=== PATIENT | female | born 1995 | race African-American/Black ===

== ENCOUNTER 2017-01-19 04:50 | Emergency (ER) | payer OTHER ==
[~2017-01-19] VITALS: Ht 175.3 cm; Wt 59.0 kg
[~2017-01-19 04:50] MED LIST: AMOX875T PO
[2017-01-19 04:53] VITALS: BP 114/68; PULSE 93; RESP 16; TEMP 97.6; O2SAT 100
[2017-01-19] MEDS ORDERED: SODIUM CHLOR 0.9% 1000 ML INJ 1,000 ML IV ONE (05:15)
[2017-01-19 05:22] VITALS: RESP 20
[2017-01-19 05:32] LABS: AUTOMATED NEUTROPHIL # 3.7 TH/MM3 (1.8-7.7); BASOPHIL % 0.6 % (0.0-2.0); EOSINOPHIL # 0.1 TH/MM3 (0-0.4); EOSINOPHIL % 1.7 % (0.0-4.0); HEMATOCRIT 34.2 % (35.0-46.0); HEMO FLAGS DIFF FINAL; LYMPH % 33.1 % (9.0-44.0); LYMPHOCYTE # 2.3 TH/MM3 (1.0-4.8); MEAN CELL VOLUME 84.9 FL (80.0-100.0); MEAN CORPUSCULAR HEMOGLOBIN 28.7 PG (27.0-34.0); MEAN CORPUSCULAR HGB CONC 33.8 % (32.0-36.0); MONO % 10.4 % (0.0-8.0); NEUT % 54.2 % (16.0-70.0); PLATELET COUNT 297 TH/MM3 (150-450); RED BLOOD COUNT 4.03 MIL/MM3 (4.00-5.30); RED CELL DISTRIBUTION WIDTH 13.9 % (11.6-17.2); WHITE BLOOD COUNT 6.8 TH/MM3 (4.0-11.0)
[2017-01-19 05:41] LABS: BACTERIA, URINE RARE /hpf; BLOOD, URINE NEG (NEG); COMMENT (UR) CULTURE INDICATED; CULTURE IF INDICATED CULTURE INDICATED; GLUCOSE,URINE NEG (NEG); KETONE, URINE TRACE mg/dL (NEG); MUCUS URINE MANY /lpf (OCC); NITRITE,URINE NEG (NEG); PH, URINE 5.5 (5.0-8.5); SQUAMOUS EPITHELIAL CELL URINE 75 /hpf (0-5); URINE COLOR YELLOW (YELLW/STRAW)
[2017-01-19 05:52] LABS: ALT (GPT) 18 U/L (9-42); ANION GAP 10 MEQ/L (5-15); AST (GOT) 12 U/L (16-38); BICARBONATE 25.1 MEQ/L (21.0-32.0); BLOOD UREA NITROGEN 7 MG/DL (7-18); CHLORIDE 103 MEQ/L (98-107); GLOMERULAR FILTRATION RATE 120 ML/MIN (>89); POTASSIUM 3.4 MEQ/L (3.5-5.1); SODIUM (NA) 138 MEQ/L (136-145)
[2017-01-19 05:55] LABS: ALKALINE PHOSPHATASE 46 U/L (45-117); TOTAL BILIRUBIN ADULT 0.2 MG/DL (0.2-1.0)
[2017-01-19 06:13] LABS: BETA HCG QUANT 24952 MIU/ML (0-5)
--- NOTE | 2017-01-19 06:42 | PD ---
HPI Chief Complaint: Abdominal Pain Time Seen by Provider: 05:08 Travel History International Travel<30 days: No Contact w/Intl Traveler<30days: No Traveled to known affect area: No History of Present Illness HPI The patient is a 21 year old female who presents to the [facility] emergency department with a history of abdominal pain that she reports began a week ago. The patient reports that the abdominal pain has been coming and going. She reports that the pain as an aching sensation. She reports that it is a mild plain pain similar to the pain she gets just prior to her menstrual cycle. She denies having any vomiting or diarrhea associated with this. She reports that her last bowel movement was 2 days ago. She reports that her bowel movements have been normal for her. She reports that over the last week she has also had vaginal discharge. She reports that the vaginal discharge is white in color. She reports that there is no odor to the discharge. The patient is a . She reports that her last menstrual cycle was December 30, 2016. She reports that her last menstrual cycle was late her than usual. She reports that she has been sexually active and has not used any form of prevention. A review of systems, the patient reports that she has had , recent cough and cold symptoms. The patient reports that she's had urinary frequency without urgency or dysuria. The patient reports that her abdominal pain is across the lower portion of the abdomen below the umbilicus. She reports that she also has bilateral lower back pain. The patient denies any recent fevers, neck pain, chest pain, shortness of breath, or neurologic symptoms. [facility] Past Medical History Narrative Medical The patient's past medical history is reportedly significant for childhood asthma Asthma: Yes Immunizations Current: Yes Tetanus Vaccination: Unknown Influenza Vaccination: No ?: Not LMP: 12/30/16 Past Surgical History Narrative Surgical The patient's past surgical history is reportedly none. Surgical History: No Previous Surgery Social History Alcohol Use: No Tobacco Use: No Substance Use: No Allergies-Medications (Allergen,Severity, Reaction): Coded Allergies: Bee Sting (Verified Allergy, Severe, 01/19/17) Seafood (Verified Allergy, Severe, 01/19/17) *MDRO Multi-Drug Resistant Organism (Verified Adverse Reaction, Unknown, ) ESBL E.coli (urine) - 04/17/2016 Reported Meds & Prescriptions Reported Meds & Active Scripts Active Macrobid (Nitrofurantoin Monoh/Nitrofur Macro) 100 Mg Cap 100 Mg PO BID 10 Days Review of Systems Except as stated in HPI: all other systems reviewed are Neg General / Constitutional: No: Fever Eyes: No: Visual changes HENT: No: Headaches Cardiovascular: No: Chest Pain or Discomfort Respiratory: No: Shortness of Breath Gastrointestinal: Positive: Abdominal Pain, No: Nausea, Vomiting, Diarrhea Genitourinary: Positive: Frequency, No: Dysuria, Flank Pain Musculoskeletal: No: Pain Skin: No Rash Neurologic: No: Weakness Psychiatric: No: Depression Endocrine: No: Polydipsia Hematologic/Lymphatic: No: Easy Bruising Physical Exam Narrative General: The patient is a well-developed well-nourished female in no acute distress. Head and Neck exam: Head is normocephalic atraumatic. Eyes: EOMI, pupils are equal round and reactive to light. Nose: Midline septum with pink mucous membranes Mouth: Dentition unremarkable. Moist mucus membranes. Posterior oropharynx is not erythematous. No tonsillar hypertrophy. Uvula midline. Airway patent. Neck: No palpable lymphadenopathy. No nuchal rigidity. No thyromegaly. Cardiovascular: Regular rate and rhythm without murmurs, gallops, or rubs. Lungs: Clear to auscultation bilaterally. No wheezes, rhonchi, or rales. Abdomen: Soft, reported discomfort on palpation of the suprapubic area, no other tenderness on palpation of the other quadrants of the abdomen. No guarding, rebound, or rigidity. Negative [place] sign. Normal bowel sounds are audible. No tenderness on palpation of McBurney's point. Extremities: No clubbing, cyanosis, or edema. 2+ pulses in all 4 extremities. No calf tenderness on palpation. Back: No spinous process tenderness to palpation. No costovertebral angle tenderness to palpation. Neurologic Exam: Grossly nonfocal Skin Exam: No rash noted. Intact skin that is warm and dry. Gynecologic exam: The patient was placed in the dorsal lithotomy position. Her external genitalia were examined. She had no evidence of rash or lesions. The speculum was placed into her vagina and the cervix was identified. She has copious amounts of white thin discharge noted on examination. No cervical friability. This is wet prep and culture. On Bimanual exam: On bimanual examination the patient has bladder tenderness to palpation. She has no cervical motion tenderness. No adnexal tenderness or prominence noted on palpation. No uterine tenderness or enlargement noted on palpation. Data Data Last Documented VS Vital Signs Date Time Temp Pulse Resp B/P Pulse Ox O2 Delivery O2 Flow Rate FiO2 01/19/17 06:49 98.0 90 16 112/60 100 Room Air Orders Complete Blood Count With Diff (01/19/17 05:08) Comprehensive Metabolic Panel (01/19/17 05:08) C-Reactive Protein (Crp) (01/19/17 05:08) Lipase (01/19/17 05:08) Urinalysis - C+S If Indicated (01/19/17 05:08) Iv Access Insert/Monitor (01/19/17 05:08) Ecg Monitoring (01/19/17 05:08) Oximetry (01/19/17 05:08) Ed Urine Pregnancytest Poc (01/19/17 05:08) Sodium Chlor 0.9% 1000 Ml Inj (Ns 1000 M (01/19/17 05:15) Beta Hcg (Quant/Titer) (01/19/17 05:27) Urine Culture (01/19/17 05:15) Gc And Chlamydia Pcr (01/19/17 05:52) Complete Rh (01/19/17 05:52) Wet Prep Profile (01/19/17 05:52) Us Pelvis (Ques Pr/Ect)W Trans (01/19/17 ) Ceftriaxone Inj (Rocephin Inj) (01/19/17 07:00) Azithromycin Powd Pack (Zithromax Powd P (01/19/17 07:00) Labs Laboratory Tests Test 01/19/17 01/19/17 01/19/17 05:15 05:25 06:45 Urine Color YELLOW Urine Turbidity CLOUDY Urine pH 5.5 Urine Specific [place] 1.037 Urine Protein 100 mg/dL Urine Glucose (UA) NEG mg/dL Urine Ketones TRACE mg/dL Urine Occult Blood NEG Urine Nitrite NEG Urine Bilirubin NEG Urine Urobilinogen 2.0 MG/DL Urine Leukocyte Esterase LARGE Urine RBC 7 /hpf Urine WBC 50 /hpf Urine Squamous Epithelial 75 /hpf Cells Urine Bacteria RARE /hpf Urine Mucus MANY /lpf Microscopic Urinalysis Comment CULTURE INDICATED White Blood Count 6.8 TH/MM3 Red Blood Count 4.03 MIL/MM3 Hemoglobin 11.6 GM/DL Hematocrit 34.2 % Mean Corpuscular Volume 84.9 FL Mean Corpuscular Hemoglobin 28.7 PG Mean Corpuscular Hemoglobin 33.8 % Concent Red Cell Distribution Width 13.9 % Platelet Count 297 TH/MM3 Mean Platelet Volume 7.6 FL Neutrophils (%) (Auto) 54.2 % Lymphocytes (%) (Auto) 33.1 % Monocytes (%) (Auto) 10.4 % Eosinophils (%) (Auto) 1.7 % Basophils (%) (Auto) 0.6 % Neutrophils # (Auto) 3.7 TH/MM3 Lymphocytes # (Auto) 2.3 TH/MM3 Monocytes # (Auto) 0.7 TH/MM3 Eosinophils # (Auto) 0.1 TH/MM3 Basophils # (Auto) 0.0 TH/MM3 CBC Comment DIFF FINAL Differential Comment Sodium Level 138 MEQ/L Potassium Level 3.4 MEQ/L Chloride Level 103 MEQ/L Carbon Dioxide Level 25.1 MEQ/L Anion Gap 10 MEQ/L Blood Urea Nitrogen 7 MG/DL Creatinine 0.75 MG/DL Estimat Glomerular Filtration 120 ML/MIN Rate Random Glucose 97 MG/DL Calcium Level 8.5 MG/DL Total Bilirubin 0.2 MG/DL Aspartate Amino Transf 12 U/L (AST/SGOT) Alanine Aminotransferase 18 U/L (ALT/SGPT) Alkaline Phosphatase 46 U/L C-Reactive Protein LESS THAN 0.29 MG/DL Total Protein 7.2 GM/DL Albumin 3.5 GM/DL Lipase 122 U/L Human Chorionic Gonadotropin, [address]7043 MIU/ML Quant Clue Cells (Wet Prep) PRESENT Vaginal Trichomonas (Wet Prep) NONE SEEN Vaginal Yeast (Wet Prep) NONE SEEN MDM Medical Decision Making Medical Screen Exam Complete: Yes Emergency Medical Condition: Yes Medical Record Reviewed: Yes Differential Diagnosis Ectopic , versus threatened miscarriage, versus PID, versus cystitis, versus pyelonephritis, versus viral syndrome Narrative Course During the course of the patients emergency department visit, the patients history, examination, and differential diagnosis were reviewed with the patient. The patient had IV access obtained and blood work sent for analysis. The patient was placed on a court monitor with oximetry and blood pressure monitoring. A bedside test was done and found to be positive. A quantitative beta hCG was then ordered. An ultrasound to rule out ectopic was ordered. The patient was provided normal saline 1 L IV fluid bolus. As the patient does have discharge noted on examination, the patient was given Rocephin 1 g IV, Zithromax 1 g by mouth. The patients laboratory studies were reviewed and remarkable for a CBC that shows a white count of 6.8, hemoglobin 11.6, platelets 297, monocytes 10.4, CMP is remarkable for potassium of 3.4, AST 12, lipase 122, beta hCG is 24,952. Urinalysis shows trace ketones large leukocyte esterase 7 RBCs WBCs 50 rare bacteria, culture indicated. Wet prep shows clue cells are present. GC and chlamydia are pending. The patient's ultrasound is pending result. The patient's case will be checked out to the oncoming emergency physician to disposition based on the conclusion of the patient's workup. Diagnosis Primary Impression: Abdominal pain affecting Additional Impressions: Urinary tract infection Qualified Code: N30.00 - Acute cystitis without hematuria Bacterial vaginosis Scripts Clindamycin 300 Mg [id number] Mg PO BID #14 CAP Ref 0 Prov:Jing De Los Santos MD 01/19/17 Nitrofurantoin Monohydrate Macrocrystals (Macrobid)100 Mg [id number] Mg PO BID 10 Days Ref 0 Prov:Jing De Los Santos MD 01/19/17 Jing De Los Santos MD Jan 19, 2017 06:42
[2017-01-19 06:49] VITALS: BP 112/60; PULSE 90; RESP 16; TEMP 98; O2SAT 100
[2017-01-19] MEDS ORDERED: MACR100C2 PO (06:58)
[2017-01-19] MEDS ORDERED: cefTRIAXone INJ 1,000 MG in SODIUM CHLORIDE 0.9% INJ 100 ML IV ONE (07:00)
[2017-01-19] MEDS ORDERED: AZITHROMYCIN PWD FOR SUSP 1 GM PACKET PO ONE (07:00)
[2017-01-19] MEDS ORDERED: CLIN1CAP6 PO (07:10)
[2017-01-19 09:30] LABS: CHLAMYDIA PCR NOT DETECTED (NOT DETECT); NEISSERIA PCR NOT DETECTED (NOT DETECT)
--- NOTE | 2017-01-19 09:40 | RADRPT ---
EXAM DATE/TIME: 01/19/2017 08:08 [place] COMPARISON: No previous studies available for comparison. INDICATIONS : Pelvic pain during . LAB(S): Beta-hC MEDICAL HISTORY : . Asthma. SURGICAL HISTORY : None. ENCOUNTER: Initial ACUITY: 1 week PAIN SCORE: 7/10 LOCATION: Bilateral pelvis MEASUREMENTS: UTERUS: 8.2 x 6.4 x 4.2 cm ENDOMETRIAL STRIPE: 19 mm RIGHT OVARY: 3.3 x 2.9 x 2.2 cm LEFT OVARY: 2.6 x 2.6 x 1.2 cm FREE FLUID: No CROWN RUMP LENGTH: 8 mm = 6 WKS 5 DAYS FHR: 126 BPM FINDINGS: UTERUS: The myometrium has homogeneous echotexture without mass. Gestational sac is identified in the uterin e fundus measuring 1.5 cm in diameter corresponding to a gestational age of 5 weeks and 6 days. A fet al pole is identified measuring 8 mm in diameter corresponding to a gestational age of 6 weeks and 5 days. Yolk sac is present. heart motions are detected at 126 beats per minute. RIGHT OVARY: Ovary contains a complex, 1.9 x 2.2 x 1.5 cm cyst with peripheral blood flow likely representing the corpus luteum. LEFT OVARY: Ovary contains no mass or significant cystic lesion. MISCELLANEOUS: No free fluid. CONCLUSION: 1. Viable intrauterine with an estimated gestational age of 6 weeks and 5 days. 2. Probable 2 cm corpus luteum in the right ovary. Skyler Soriano MD on January 19, 2017 at 9:34 Board Certified Radiologist. This report was verified electronically.
[2017-01-19 10:00] VITALS: BP 120/64; PULSE 80; RESP 14; O2SAT 99
[2017-02-05] MEDS ORDERED: PREN1CAP PO (15:39)
[2017-02-10] MEDS ORDERED: METR500T10 PO (16:43)
== END 2017-01-19 10:32 | disposition home or self-care (01) ==
LOC: NEPE 04:50
DX: O26.891 Other specified pregnancy related conditions, first trimester (principal); O23.41 Unspecified infection of urinary tract in pregnancy, first trimester; N89.8 Other specified noninflammatory disorders of vagina; B96.20 Unspecified Escherichia coli [E. coli] as the cause of diseases classified elsewhere; M54.5 Low back pain; J45.909 Unspecified asthma, uncomplicated; Z3A.01 Less than 8 weeks gestation of pregnancy
CPT/HCPCS: 76700; 76817; 80053; 81001; 83690; 84702; 84703; 85025; 86140; 86901; 87077; 87086; 87186; 87210; 87491; 87591; 96361; 96365; 99284; J0696; J7030

== ENCOUNTER 2017-02-20 17:15 | Emergency (ER) | payer MEDICAID, OTHER ==
[~2017-02-20] VITALS: Ht 175.3 cm; Wt 60.0 kg
[~2017-02-20 17:15] MED LIST changes: -AMOX875T PO; +METR500T10 PO; +PREN1CAP PO
[2017-02-20 17:16] VITALS: BP 119/78; PULSE 85; RESP 15; TEMP 98; O2SAT 98
[2017-02-20 17:55] VITALS: BP 113/67; PULSE 82; RESP 16; O2SAT 100
[2017-02-20 18:59] LABS: BLOOD, URINE NEG (NEG); COMMENT (UR) CULT NOT INDICATED; CULTURE IF INDICATED CULT NOT INDICATED; GLUCOSE,URINE NEG (NEG); KETONE, URINE NEG (NEG); MUCUS URINE FEW /lpf (OCC); NITRITE,URINE NEG (NEG); SQUAMOUS EPITHELIAL CELL URINE 8 /hpf (0-5); URINE COLOR YELLOW (YELLW/STRAW)
--- NOTE | 2017-02-20 19:44 | PD ---
HPI Chief Complaint: Related Problem Time Seen by Provider: 18:00 Travel History International Travel<30 days: No Contact w/Intl Traveler<30days: No Traveled to known affect area: No History of Present Illness HPI Patient is a 21-year-old female presenting to emergency evaluation of abdominal cramping. Patient states it's been going on for 2 weeks, last week she had an episode of spotting. She is a proximately 12 weeks . 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 She states the cramping this morning lasted for about a minute and a half and had been intermittent throughout the day. She has no sexual intercourse since December. She reports white vaginal discharge. He has not had any further bleeding since last week. PFSH Past Medical History Asthma: Yes Immunizations Current: Yes Tetanus Vaccination: > 5 Years Influenza Vaccination: Yes ?: LMP: 11/15/16 Miscarriage: 0 : 0 Past Surgical History Surgical History: No Previous Surgery Social History Alcohol Use: No Tobacco Use: No Substance Use: No Allergies-Medications (Allergen,Severity, Reaction): Coded Allergies: Bee Sting (Verified Allergy, Severe, 01/19/17) Seafood (Verified Allergy, Severe, 01/19/17) *MDRO Multi-Drug Resistant Organism (Verified Adverse Reaction, Unknown, ) ESBL E.coli (urine) - 04/17/2016 & 01/19/17 Reported Meds & Prescriptions Reported Meds & Active Scripts Active Metronidazole 500 Mg Tab 500 Mg PO BID Vitafol Ultra 29-0.6-0.4-200 mg ( Vit W/ Fe Polysacch C) 1 Cap Cap 1 Tab PO DAILY Vitafol Ultra 29-0.6-0.4-200 mg ( Vit W/ Fe Polysacch C) 1 Cap Cap Review of Systems Except as stated in HPI: all other systems reviewed are Neg Gastrointestinal: Positive: Abdominal Pain (cramping) Genitourinary: Positive: Discharge (white), Vaginal Bleeding (spotting last week for 1 day), No: Pelvic Pain, Flank Pain Physical Exam Narrative GENERAL: Well-nourished, well-developed patient. SKIN: Focused skin assessment warm/dry. HEAD: Normocephalic. EYES: No scleral icterus. No injection or drainage. NECK: Supple, trachea midline. No JVD or lymphadenopathy. CARDIOVASCULAR: Regular rate and rhythm without murmurs, gallops, or rubs. RESPIRATORY: Breath sounds equal bilaterally. No accessory muscle use. GASTROINTESTINAL: Abdomen soft, non-tender, nondistended. MUSCULOSKELETAL: No cyanosis, or edema. BACK: Nontender without obvious deformity. No CVA tenderness. Data Data Last Documented VS Vital Signs Date Time Temp Pulse Resp B/P Pulse Ox O2 Delivery O2 Flow Rate FiO2 02/20/17 17:55 82 16 113/67 100 Room Air 02/20/17 17:16 98.0 Orders Urinalysis - C+S If Indicated (02/20/17 18:04) Wet Prep Profile (02/20/17 18:04) Labs Laboratory Tests Test 02/20/17 02/20/17 18:05 19:53 Urine Color YELLOW Urine Turbidity HAZY Urine pH 7.0 Urine Specific [place] 1.026 Urine Protein TRACE mg/dL Urine Glucose (UA) NEG mg/dL Urine Ketones NEG mg/dL Urine Occult Blood NEG Urine Nitrite NEG Urine Bilirubin NEG Urine Urobilinogen LESS THAN 2.0 MG/DL Urine Leukocyte Esterase SMALL Urine WBC 3 /hpf Urine Squamous Epithelial 8 /hpf Cells Urine Mucus FEW /lpf Microscopic Urinalysis Comment CULT NOT INDICATED Clue Cells (Wet Prep) NONE SEEN Vaginal Trichomonas (Wet Prep) NONE SEEN Vaginal Yeast (Wet Prep) NONE SEEN MDM Medical Decision Making Medical Screen Exam Complete: Yes Emergency Medical Condition: Yes Interpretation(s) Vital Signs Date Time Temp Pulse Resp B/P Pulse Ox O2 Delivery O2 Flow Rate FiO2 02/20/17 17:55 82 16 113/67 100 Room Air 02/20/17 17:55 14 02/20/17 17:16 98.0 85 15 119/78 98 Differential Diagnosis UTI versus abdominal cramping versus threatened versus muscle spasms versus other Narrative Course Patient is a 21-year-old female presenting to emergency department for evaluation of cramping for the last 2 weeks as well as an episode of spotting last week that lasted one day. Bedside ultrasound was performed, heart tones and movement was detected on exam. GENITOURINARY: Normal external genitalia without lesions or erythema. Vaginal vault without blood, moderate amount of thick white discharge noted. Cervical os was closed without drainage. No cervical motion tenderness. Uterus nontender and nonenlarged. Bilateral adnexa nontender without masses. Wet prep sent. Patient was negative for chlamydia and gonorrhea on January 19, 2017 and has not been sexually active since prior to that. Urinalysis is unremarkable, with prep was negative. Patient will be discharged home, she is advised to follow-up with the PRODUCTION TEAM MEMBER. She was encouraged to return to emergency department for any new or worsening symptoms. She verbalized understanding of these instructions. Patient is stable for discharge. Diagnosis Primary Impression: Abdominal cramping Referrals: Airline Attendant 3 days Patient Instructions: General Instructions, at 11 to 14 Weeks (ED) Additional Instructions: Follow-up with her academic services coordinator on Thursday Return to the emergency department immediately for any new or worsening symptoms May take [id number] Tylenol as needed and as directed for pain Med/Other Pt SpecificInfo: No Change to Meds Disposition: 01 DISCHARGE HOME Condition: Stable Val [place]ona Feb 20, 2017 19:44
== END 2017-02-20 20:56 | disposition home or self-care (01) ==
LOC: NEPD 17:15
DX: O26.891 Other specified pregnancy related conditions, first trimester (principal); R10.9 Unspecified abdominal pain; N89.8 Other specified noninflammatory disorders of vagina; Z3A.12 12 weeks gestation of pregnancy
CPT/HCPCS: 81001; 87210; 99284

== ENCOUNTER 2017-06-28 03:10 | Emergency (ER) | payer MEDICAID ==
[~2017-06-28 03:10] MED LIST changes: -METR500T10 PO
[2017-06-28] MEDS ORDERED: ACETAMINOPHEN 325 MG TAB PO ONE (04:15)
--- NOTE | 2017-06-28 04:30 | PD ---
HPI Chief Complaint abdominal pain Date Seen: Jun 28, 2017 (Destin Bunch MD, R3) Travel History International Travel<30 Days: No Contact w/Intl Traveler<30Days: No Known Affected Area: No (Destin Bunch MD, R3) History of Present Illness HPI Ms. Brennan is a 21 yo G1 patient of [facility] at 29 4/7 weeks (MARITZA 2016) who presents to OB ED with abdominal pain. Patient reports that she has had intermittent abdominal discomfort for multiple days; patient is not sure when this first started. Patient describes pain as off /on, and predominately being in her lower abdomen. Patient does not report pain being associated with urination, eating, or with bowel movements. Patient does not report fever/chills. Patient reports urinary urgency, but is not sure whether this pain occurred before or after onset of abdominal pain. Patient also reports vaginal area discomfort but does not report vaginal discharge, vaginal bleeding, or new sexual partners. Patient does not report chest pain, shortness of breath, leg swelling, or other symptoms. Patient reports normal movement. Per review of records: O - blood; getting Rhogam 06/30. ASCUS on prior PAP. Prior ESBL in urine 12/2016, and several times in 2015. Normotensive during . Glucose testing reportedly performed 06/26/2017. Weeks Gestation: 29 : 1 (Destin Bunch MD, R3) History Past Medical History Narrative Medical Past Medical ASCUS on PAP Rh negative Prior UTI's (multiple E Coli ESBLs in 2016, 2016) Childhood UTI's (Destin Bunch MD, R3) Obstetric History Obstetric History G1 (Destin Bunch MD, R3) Past Surgical History Surgical History: No Previous Surgery (Destin Bunch MD, R3) Family History Narrative Family History Mother- Lupus (Destin Bunch MD, R3) Social History Alcohol Use: No Tobacco Use: No Substance Abuse: No (Destin Bunch MD, R3) Allergies-Medications (Allergen,Severity, Reaction): Coded Allergies: Fish Containing Products (Unverified Allergy, Severe, 06/25/17) bee venom protein (honey bee) (Unverified Allergy, Severe, 06/25/17) *MDRO Multi-Drug Resistant Organism (Verified Adverse Reaction, Unknown, ) ESBL E.coli (urine) - 04/17/2016 & 01/19/17 Home Meds Active Scripts Nitrofurantoin Monohydrate Macrocrystals (Macrobid) 100 Mg Capsule, 100 MG PO BID for Infection for 7 Days, #14 CAP 0 Refills Prov:Destin Bunch MD, R3 06/28/17 Vit W/ Fe Polysacch C (Vitafol Ultra 29-0.6-0.4-200 mg) 1 Cap Cap, 1 TAB PO DAILY, #30 BOTTLE 11 Refills Prov:Darleen Go 02/05/17 Vit W/ Fe Polysacch C (Vitafol Ultra 29-0.6-0.4-200 mg) 1 Cap Cap Prov:Darleen Go 02/05/17 Review of Systems General / Constitutional: No: Fever Eyes: No: Blurred Vision HENT: No: Headaches Cardiovascular: No: Chest Pain or Discomfort Respiratory: No: Short of Breath Gastrointestinal: Abdominal Pain, No: Nausea, Vomiting Genitourinary: Urgency, No: Dysuria Skin: No Rash, No Itching (Destin Bunch MD, R3) Physical Exam T 97.8F RR 16 HR 70 BP 106/62 Narrative GENERAL: Well-nourished, well-developed patient. SKIN: Warm and dry. EYES: No scleral icterus. No injection or drainage. ENT: Mucous membranes pink. CARDIOVASCULAR: Regular rate and rhythm without murmurs RESPIRATORY: CTAB, normal rate EXTREMITIES: No cyanosis or edema. NEUROLOGICAL: Awake and alert. Motor and sensory function grossly within normal limits. ABDOMEN/GI: Abdomen soft, gravid, tender to palpation in lower abdominal and more prominent in suprapubic area. No guarding Uterine Contractions: None FHT's: Category: 1 Baseline: 130 Reactive: Y Variability: Mod Decels: None (Destin Bunch MD, R3) MDM Medical Record Reviewed: Yes Narrative Course / MDM Ms. Brennan is a 21 yo G1 patient of [facility] at 29 4/7 weeks (MARITZA 2016) who presents to OB ED with abdominal pain. -lower abdominal pain radiating to vagina, intermittent for subacute duration which is reproducible on PE in suprapubic area -Reassuring vitals -Cat 1 rhythm -Nursing dip stick UA with small leukocytes -PMH of multiple UA's with ESBL E Coli Impression/Plan: Patient's description of abdominal pain radiating to vaginal area suggestive of uterine stretching and dipstick UA reassuring, but patient also has history of multiple UTI's and pain is predominately in suprapubic area on exam. -Will check formal urinalysis -Tylenol encouraged for pain control Interval: Urinalysis resulted: Leukocyte esterase large, WBC 21, bacteria occasional, nitrates negative Updated plan: Due to suggestion of UTI on urinalysis (large leukoesterase, WBC 21), will presumptively treat with Macrobid due to prior multiple UTIs showing sensitivity. Patient was advised to call [facility] to confirm that urine culture grew organism sensitive to Macrobid. Patient reports that she is taking this medication previously without known side effects (Destin Bunch MD, R3) Attending Attestation 29 weeks Suprapubic pain with urinary urgency. UA c/w UTI. Hx of e.coli, will treat. Patient to f/u with clinic on urine culture Thursday. FHT reassuring. (Pearl Waldrop MD) Diagnosis Diagnosis: Primary Impression: Urinary tract infection Additional Impressions: Abdominal pain affecting UTI (urinary tract infection) in in third trimester 29 weeks gestation of Disposition: 01 DISCHARGE HOME Condition: Stable Scripts Nitrofurantoin Monohydrate Macrocrystals (Macrobid) 100 Mg Capsule 100 MG PO BID for Infection for 7 Days, #14 CAP 0 Refills Prov: Destin Bunch MD, R3 06/28/17 Patient Instructions: General Instructions, Labor (ED), Abdominal Pain in (ED), Urinary Tract Infection in (ED) Additional Instructions: RETURN FOR CONTRACTIONS, LOSS OF FLUID (WATER BREAKING), VAGINAL BLEEDING, OR DECREASED MOVEMENT DRINK 8-10 LARGE GLASSES OF WATER EVERY DAY KEEP SCHEDULED APPOINTMENT WITH YOUR PROVIDER Departure Forms: Tests/Procedures Destin Bunch MD, R3 Jun 28, 2017 04:30 Pearl Waldrop MD Jun 28, 2017 08:46
[2017-06-28 04:44] LABS: BACTERIA, URINE OCC /hpf; BLOOD, URINE NEG (NEG); COMMENT (UR) CULTURE INDICATED; CULTURE IF INDICATED CULTURE INDICATED; GLUCOSE,URINE NEG (NEG); KETONE, URINE NEG (NEG); NITRITE,URINE NEG (NEG); RENAL EPITHELIAL CELLS <1 /hpf; SQUAMOUS EPITHELIAL CELL URINE 5 /hpf (0-5); URINE COLOR YELLOW (YELLW/STRAW)
[2017-06-28] MEDS ORDERED: MACR100C2 PO (04:58)
== END 2017-06-28 08:56 | disposition home or self-care (01) ==
LOC: HOBED 03:10
DX: O47.03 False labor before 37 completed weeks of gestation, third trimester (principal); O23.43 Unspecified infection of urinary tract in pregnancy, third trimester; Z3A.29 29 weeks gestation of pregnancy
CPT/HCPCS: 81001; 87086; 99283

== ENCOUNTER 2017-07-09 17:08 | Emergency (ER) | payer MEDICAID ==
[~2017-07-09 17:08] MED LIST changes: +MACR100C2 PO
[2017-07-09] MEDS ORDERED: LACTATED RINGER'S 1000 ML INJ 1,000 ML IV SCH (19:48)
--- NOTE | 2017-07-09 19:48 | PD ---
HPI Chief Complaint Fall Travel History International Travel<30 Days: No Contact w/Intl Traveler<30Days: No Known Affected Area: No History of Present Illness HPI 21-year-old , IUP at 31.1 care uncomplicated per patient report Patient presents reporting that she fell while trying to get up into her truck to come to work at 11 AM this morning. She reports also that she also fell a week ago in the shower. She reports that this morning, when she lost her balance getting up into the truck, she hit the top side of her left abdomen on the bottom step of the truck and then fell onto the ground on her bottom. 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 She denies any leaking of fluid or vaginal bleeding. She denies any painful contractions or cramping. She has no other obstetrical complaints. 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 SKIN: Warm and dry. HEAD: Normocephalic and atraumatic. EYES: No scleral icterus. No injection or drainage. ENT: No nasal drainage noted. Mucous membranes pink. Airway patent. NECK: Supple, trachea midline. No JVD. CARDIOVASCULAR: Regular rate and rhythm without murmurs, gallops, or rubs. RESPIRATORY: Breath sounds equal bilaterally. No accessory muscle use. BREASTS: Bilateral exam showed no masses , no retractions, no nipple discharge. ABDOMEN/GI: Abdomen soft, non-tender, bowel sounds present, no rebound, no guarding. No bruising noted. Gravid GENITOURINARY:deferred FHT's: Category 1 with baseline 120s, reactive NST, good accelerations and no decelerations noted with moderate long-term variability EXTREMITIES: No cyanosis or edema. BACK: Nontender without obvious deformity. No CVA tenderness. NEUROLOGICAL: Awake and alert. Motor and sensory grossly within normal limits. Five out of 5 muscle strength in all muscle groups. Normal speech. Psych: Grossly normal memory and affect Musculoskeletal: Grossly normal range of motion, gait, and muscle strength MDM Plan Assessment/plan: 1. IUP at 31.1 2. Status post fall: no evidence of significant abdominal trauma or mechanism of injury, normal US and reactive NST. No bruising noted. Uterine irritability resolved IV fluids over prolonged monitoring. 3. Reassuring testing with reactive NST, heart tones are reassuring and appropriate for gestational age and incidental BPP 8/8 (10/10 with reactive NST). kick counts daily. Reassuring testing was noted throughout the patient's observation. 4. Rh-: The patient has not yet received her rhogam injection. Due to fall broke and was given prior to discharge 5. UA: bacturia noted, culture pending, will rx macrobid 6. Follow up with primary OB in 2-3 days or sooner if needed Diagnosis Diagnosis: Primary Impression: 31 weeks gestation of Condition: Darleen Rooney MD Jul 09, 2017 19:48
[2017-07-09 20:00] VITALS: RESP 18
[2017-07-09 20:21] LABS: HEMATOCRIT 33.5 % (35.0-46.0); MEAN CELL VOLUME 83.9 FL (80.0-100.0); MEAN CORPUSCULAR HEMOGLOBIN 27.2 PG (27.0-34.0); MEAN CORPUSCULAR HGB CONC 32.5 % (32.0-36.0); PLATELET COUNT 274 TH/MM3 (150-450); RED BLOOD COUNT 3.99 MIL/MM3 (4.00-5.30); RED CELL DISTRIBUTION WIDTH 13.6 % (11.6-17.2); REVIEW FLAG FINAL; WHITE BLOOD COUNT 8.5 TH/MM3 (4.0-11.0)
[2017-07-09 21:00] VITALS: RESP 18
[2017-07-09 21:08] LABS: BACTERIA, URINE MANY /hpf; BLOOD, URINE NEG (NEG); COMMENT (UR) CULTURE INDICATED; CULTURE IF INDICATED CULTURE INDICATED; GLUCOSE,URINE NEG (NEG); KETONE, URINE TRACE mg/dL (NEG); MUCUS URINE MOD /lpf (OCC); NITRITE,URINE NEG (NEG); SQUAMOUS EPITHELIAL CELL URINE 2 /hpf (0-5); URINE COLOR YELLOW (YELLW/STRAW)
--- NOTE | 2017-07-09 21:37 | HHI.PR ---
Subjective Remarks NST report Indications: IUP at 31.1, status post fall. Baseline: 120s with good accelerations and no decelerations, reactive NST Follow-up: Final diagnosis: IUP at 31.1, status post fall, reassuring testing Objective Result Diagram: 07/09/171999 Darleen Farrar MD Jul 09, 2017 21:37
[2017-07-09 22:00] VITALS: RESP 18
[2017-07-09 23:00] VITALS: RESP 18
[2017-07-10] VITALS: RESP 18
[2017-07-10 01:00] VITALS: RESP 18
[2017-07-10 01:45] VITALS: RESP 18
--- NOTE | 2017-07-10 05:31 | PD ---
History of Present Illness History of Present Illness NST/BPP report Indications: IUP at 31 weeks, status post fall NST with baseline 120s, moderate long-term variability, good accelerations, no decelerations, reactive and appropriate for gestational age. Biophysical profile meeting all criteria with greater than 30 seconds breathing observed, fluid pocket 2 x 2 centimeters, greater than 3 gross movements, greater than 2 flexion and extension movements. f/u office clinically indicated Final diagnosis: IUP at 31 weeks, status post fall, status post reassuring testing Darleen Farrar MD Jul 10, 2017 05:31
== END 2017-07-10 06:43 | disposition home or self-care (01) ==
LOC: HOBED 17:08
DX: O9A.213 Injury, poisoning and certain other consequences of external causes complicating pregnancy, third trimester (principal); S39.91XA Unspecified injury of abdomen, initial encounter; B96.20 Unspecified Escherichia coli [E. coli] as the cause of diseases classified elsewhere; O23.43 Unspecified infection of urinary tract in pregnancy, third trimester; Z3A.31 31 weeks gestation of pregnancy; W17.89XA Other fall from one level to another, initial encounter; Y92.812 Truck as the place of occurrence of the external cause
CPT/HCPCS: 59025; 76816; 81001; 83030; 85027; 85461; 86850; 86900; 86901; 87077; 87086; 87186; 90384; 96372; 99284; J7120; J2790

== ENCOUNTER 2017-08-11 12:24 | Emergency (ER) | payer MEDICAID ==
--- NOTE | 2017-08-11 14:26 | PD ---
HPI Chief Complaint Painful contractions (Aditi Ford MD R1) Travel History International Travel<30 Days: No Contact w/Intl Traveler<30Days: No Known Affected Area: No (Aditi Ford MD R1) History of Present Illness HPI Patient is a 21-year-old @ 35/6 weeks w/recently diagnosed sickle cell who presents with lower abdominal cramping and back pain since last night. Endorses nausea/vomiting and chills. States that she has vomited twice today. Denies any recent sex or trauma. Denies vaginal bleeding or leakage of fluid, endorses movements. Has a history of frequent bladder infections; last was a month and a half ago. Patient completed treatment with Macrobid. Last ultrasound was done 07/09/17 at 32/6 weeks. BPP was 06/09. Patient believes that she has a history of low-lying placenta, however patient record show no documentation of this information. States that she was diagnosed with sickle cell anemia at the start of her . Has not received any treatment, is getting weekly iron levels and blood tests. States her last level was low, and was prescribed iron. Has not taken it yet. Para: 0 : 1 (Aditi Ford MD R1) History Past Medical History Narrative Medical Sickle cell anemia - no medication Frequent UTIs PAP smear hx of ASGUS + (Aditi Ford MD R1) Past Surgical History Surgical History: No Previous Surgery (Aditi Ford MD) Family History Family History: Negative (Aditi Ford MD) Social History Alcohol Use: No Tobacco Use: No Substance Abuse: No (Aditi Ford MD R1) Allergies-Medications (Allergen,Severity, Reaction): Coded Allergies: Fish Containing Products (Unverified Allergy, Severe, 08/06/17) bee venom protein (honey bee) (Unverified Allergy, Severe, 08/06/17) *MDRO Multi-Drug Resistant Organism (Verified Adverse Reaction, Unknown, ) 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 Prov:Darleen GoP 08/11/17 Discontinued Scripts Vit W/ Fe Polysacch C (Vitafol Ultra 29-0.6-0.4-200 mg) 1 Cap Cap, 1 TAB PO DAILY, #30 BOTTLE 11 Refills Prov:Darleen GoP 02/05/17 Vit W/ Fe Polysacch C (Vitafol Ultra 29-0.6-0.4-200 mg) 1 Cap Cap Prov:Darleen Go [facility] 02/05/17 Physical Exam Narrative GENERAL: Well-nourished, well-developed patient. SKIN: Warm and dry. HEAD: Normocephalic and atraumatic. EYES: No scleral icterus. No injection or drainage. ENT: No nasal drainage noted. Mucous membranes pink. Airway patent. NECK: Supple, trachea midline. No JVD. CARDIOVASCULAR: Regular rate and rhythm without murmurs, gallops, or rubs. RESPIRATORY: Breath sounds equal bilaterally. No accessory muscle use. BREASTS: Bilateral exam showed no masses , no retractions, no nipple discharge. ABDOMEN/GI: Abdomen soft, non-tender, bowel sounds present, no rebound, no guarding Gravid to 35/6 weeks size GENITOURINARY: External Genitalia: intact and normal in appearance Cervix: Posterior Dilatation: 1 cm Effacement: 10% Station: -2 Presentation: [-] Membranes: [intact] Uterine Contractions: [-] FHT's: Category: 1 Baseline: 145 Reactive: Yes Variability: Moderate Decels: None EXTREMITIES: No cyanosis or edema. (Aditi Ford MD R1) Data Data Orders Orders Vital Signs (Adult) .ON ADMISSION (08/11/17 13:32) ^ Labor Status (08/11/17 13:32) Urinalysis - C+S If Indicated (08/11/17 13:32) Ob/Psych Drug Screen, Urine (08/11/17 13:36) (Aditi Ford MD R1) MDM Interpretation(s) Patient is a 21-year-old at 35/6 weeks presenting with lower abdominal and back pain. Not currently nano, no rupture of membranes. heart tracing reassuring category 1. Last BPP 06/09. Dilated 1 cm, significantly effaced. Sickle cell anemia is being monitored. Plan No indications for admission at this time. U/A, UDS ordered as part of initial contraction workup. Patient no longer nano. Discharge today. NANCY Sim (Aditi Ford MD R1) Diagnosis Diagnosis: Primary Impression: Abdominal cramping Additional Impression: with 35 completed weeks gestation Disposition: DISCHARGE HOME Condition: Stable Scripts Nitrofurantoin Macrocrystal (Nitrofurantoin Macrocrystal) 100 Mg Cap 100 MG PO HS for Infection, #7 CAP 0 Refills Prov: Aditi Ford MD R1 08/11/17 Nitrofurantoin Macrocrystal (Macrodantin) 100 Mg Cap 100 MG PO BID, #60 CAP 0 Refills Prov: Aditi Ford MD R1 08/11/17 Collaborating MD Comments Cervix / exam (Justina Sim MD) Collaborating MD Comments Patient understands that her anemia is iron deficiency anemia. Sickle cell screen was negative Placenta is fundal. Agree with treatment for urinary tract infection with suppression due to recurrence x 4 RTC for appt this . (Justina Sim MD) Aditi Ford MD R1 Aug 11, 2017 14:26 Justina Sim MD Aug 11, 2017 17:20
[2017-08-11] MEDS ORDERED: ZITH1POW PO (15:08)
[2017-08-11] MEDS ORDERED: AMOX500T PO (15:09)
[2017-08-11 15:15] LABS: BACTERIA, URINE MOD /hpf; BLOOD, URINE NEG (NEG); COMMENT (UR) CULTURE INDICATED; CULTURE IF INDICATED CULTURE INDICATED; GLUCOSE,URINE NEG (NEG); KETONE, URINE NEG (NEG); MUCUS URINE FEW /lpf (OCC); NITRITE,URINE POS (NEG); PH, URINE 6.5 (5.0-8.5); SQUAMOUS EPITHELIAL CELL URINE 11 /hpf (0-5); URINE COLOR YELLOW (YELLW/STRAW)
[2017-08-11] MEDS ORDERED: MACR100C3 PO ×2 (16:55→17:26)
[2017-08-11] MEDS ORDERED: NITR1CAP36 PO ×2 (16:55→17:26)
[2017-08-14 09:22] LABS: HEROIN (6-ACETYLMORPHINE) UR NEG (NEG); OBMETHADONE UR NEG (NEG); PHENCYCLIDINE URINE NEG (NEG)
[2017-08-14 09:23] LABS: BATH SALTS (MDPV) UR NEG (NEG); ECSTASY (MDMA) UR NEG (NEG); GABAPENTIN UR NEG (NEG); HYDROMORPHONE U NEG (NEG); K2 SPICE UR NEG (NEG)
== END 2017-08-11 18:05 | disposition home or self-care (01) ==
LOC: HOBED 12:24
DX: R10.9 Unspecified abdominal pain (principal); N39.0 Urinary tract infection, site not specified; B96.20 Unspecified Escherichia coli [E. coli] as the cause of diseases classified elsewhere; D57.1 Sickle-cell disease without crisis; Z3A.35 35 weeks gestation of pregnancy
CPT/HCPCS: 59025; 80307; 81001; 87077; 87086; 87186; 99283; G0481

== ENCOUNTER 2017-08-12 18:12 | Observation (INO) | payer MEDICAID ==
[~2017-08-12 18:12] MED LIST changes: +AMOX500T PO; -MACR100C2 PO; +MACR100C3 PO; +NITR1CAP36 PO; -PREN1CAP PO; +ZITH1POW PO
[2017-08-12 18:40] VITALS: PULSE 113
[2017-08-12] MEDS ORDERED: SODIUM CHLOR 0.9% 1000 ML INJ 1,000 ML IV SCH (19:00)
[2017-08-12] MEDS ORDERED: SODIUM CHLORIDE 0.9% FLUSH 10 ML FLUSH IV FLUSH PRN (19:15)
[2017-08-12] MEDS ORDERED: ONDANSETRON HCL 4 MG/2 ML VIAL IV PUSH PRN (19:15)
[2017-08-12] MEDS ORDERED: ACETAMINOPHEN 325 MG TAB PO PRN (19:15)
[2017-08-12] MEDS: SODIUM CHLORID 0.9% 500 ML INJ 500 ML IV SCH (19:15)
--- NOTE | 2017-08-12 19:21 | PD ---
HPI Chief Complaint UTI and fever/chills Date Seen: Aug 12, 2017 Time Seen: 19:01 Travel History International Travel<30 Days: No Contact w/Intl Traveler<30Days: No Known Affected Area: No History of Present Illness HPI Pt is a 21y/o G1 @ 36.0wks with a h/o recurrent UTIs and anemia presents for fever/chills. She was seen yesterday in triage for a UTI. At the time, she was afebrile and was d/c'd home with an Rx for macrobid. She states that when she left the hospital last evening, her pharmacy was closed so she was unable to pear picker her Rx. She reports having a fever at 4pm yesterday and taking 1000mg of tylenol. She woke up over night with 102.4 fever and took another 1000mg at 4am. She took more tylenol at 9am and 2pm. She finally picked up her Rx and took it at 2pm. She also reports N/V today. Weeks Gestation: 36 Para: 0 : 1 History Past Medical History Narrative Medical recurrent UTIs anemia Obstetric History Obstetric History current G1, no complications this other than recurrent UTIs (not on suppression) Past Surgical History Narrative Surgical none Surgical History: No Previous Surgery Family History Family History: Negative Social History Alcohol Use: No Tobacco Use: No Substance Abuse: No Allergies-Medications (Allergen,Severity, Reaction): Coded Allergies: Fish Containing Products (Unverified Allergy, Severe, 08/06/17) bee venom protein (honey bee) (Unverified Allergy, Severe, 08/06/17) *MDRO Multi-Drug Resistant Organism (Verified Adverse Reaction, Unknown, ) ESBL E.coli (urine) - 04/17/2016 & 01/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 Prov:Darleen GoAbdulaziz AYALA 08/11/17 Discontinued Scripts Vit W/ Fe Polysacch C (Vitafol Ultra 29-0.6-0.4-200 mg) 1 Cap Cap, 1 TAB PO DAILY, #30 BOTTLE 11 Refills Prov:Darleen Go Kimo MANNINGP 02/05/17 Vit W/ Fe Polysacch C (Vitafol Ultra 29-0.6-0.4-200 mg) 1 Cap Cap Prov:AlenlidyaDarleen B. [facility] 02/05/17 Review of Systems Except as stated in HPI: all other systems reviewed are Neg Physical Exam Narrative GENERAL: Well-nourished, well-developed patient. SKIN: Warm and dry. HEAD: Normocephalic and atraumatic. EYES: No scleral icterus. No injection or drainage. ENT: No nasal drainage noted. Mucous membranes pink. Airway patent. ABDOMEN/GI: Abdomen soft, non-tender, gravid EXTREMITIES: No cyanosis or edema. BACK: + Left CVA tenderness. NEUROLOGICAL: Awake and alert. Motor and sensory grossly within normal limits.Normal speech. FHT's: Category: 1 Baseline: 140 Reactive: yes Variability: moderate Decels: none TOCO: occasional ctx Data Data Vital Signs Reviewed: Yes Orders Orders Vital Signs (Adult) .ON ADMISSION (08/12/17 18:44) ^ Labor Status (08/12/17 18:44) ^ Non Stress Test (08/12/17 18:44) Cbc No Diff, Includes Plts (08/12/17 18:44) Comprehensive Metabolic Panel (08/12/17 18:44) Sodium Chlor 0.9% 1000 Ml Inj (Ns 1000 M (08/12/17 19:00) Ceftriaxone Inj (Rocephin Inj) (08/12/17 20:00) Place In Observation (08/12/17 ) Diet Regular Basic (08/13/17 Breakfast) Vital Signs (Adult) [id number] AWAKE (08/12/17 19:05) Heart DOC.QSHIFT (08/12/17 19:05) Activity Oob Ad Luz (08/12/17 19:05) Acetaminophen (Tylenol) (08/12/17 19:15) Mspnfsxz-Rxe-Dgrlu-Iron Prenat (Stuartna (08/13/17 09:00) Sodium Chloride 0.9% Flush (Ns Flush) (08/12/17 21:00) Sodium Chloride 0.9% Flush (Ns Flush) (08/12/17 19:15) Ondansetron Odt (Zofran Odt) (08/12/17 19:15) Ondansetron Inj (Zofran Inj) (08/12/17 19:15) Ferrous Sulfate (Ferrous Sulfate) (08/12/17 21:00) Ceftriaxone Inj (Rocephin Inj) (08/13/17 19:15) Sodium Chlorid 0.9% 500 Ml Inj (Ns 500 M (08/12/17 19:15) MDM Plan 21y/o G1 @ 36.0wks with 1. pyelonephritis -- admit to antepartum -- CBC, CMP -- rocephin 1g q24hrs 2. anemia -- ferrous sulfate BID 3. -- cat 1 tracing, no s/s of PTL -- NST qshift 4. general -- regular diet -- up ad luz -- zofran PRN -- full code, accepts blood/ for emergencies Diagnosis Diagnosis: Primary Impression: Additional Impressions: Pyelonephritis affecting in third trimester 36 weeks gestation of Anemia Robert Way MD Aug 12, 2017 19:21
--- NOTE | 2017-08-12 19:30 | HHI.PR ---
STRUCTURAL RIGGER Note Note History of Present Illness HPI Pt is a 21y/o G1 @ 36.0wks with a h/o recurrent UTIs and anemia presents for fever/chills. She was seen yesterday in triage for a UTI. At the time, she was afebrile and was d/c'd home with an Rx for macrobid. She states that when she left the hospital last evening, her pharmacy was closed so she was unable to steel pickler her Rx. She reports having a fever at 4pm yesterday and taking 1000mg of tylenol. She woke up over night with 102.4 fever and took another 1000mg at 4am. She took more tylenol at 9am and 2pm. She finally picked up her Rx and took it at 2pm. She also reports N/V today. Weeks Gestation: 36 Para: 0 : 1 Past Medical History Narrative Medical recurrent UTIs anemia Obstetric History Obstetric History current G1, no complications this other than recurrent UTIs (not on suppression) Past Surgical History Surgical History: No Previous Surgery Family History Family History: Negative Social History Alcohol Use: No Tobacco Use: No Substance Abuse: No Allergies-Medications (Allergen,Severity, Reaction): Coded Allergies: Fish Containing Products (Unverified Allergy, Severe, 08/06/17) bee venom protein (honey bee) (Unverified Allergy, Severe, 08/06/17) *MDRO Multi-Drug Resistant Organism (Verified Adverse Reaction, Unknown, ) ESBL E.coli (urine) - 04/17/2016 & 01/19/17 Home Meds Active Scripts Nitrofurantoin Macrocrystal (Nitrofurantoin Macrocrystal) 100 Mg Cap, 100 MG PO HS for Infection, #7 CAP 0 Refills Prov:Aditi Ford MD R1 08/11/17 Nitrofurantoin Macrocrystal (Macrodantin) 100 Mg Cap, 100 MG PO BID, #60 CAP 0 Refills Prov:Aditi Ford MD R1 08/11/17 Amoxicillin (Amoxicillin) 500 Mg Tab, 500 MG PO TID for Infection, #21 TAB 0 Refills Prov:Darleen Go 08/11/17 Azithromycin Powder Packet (Zithromax Powder Packet) 1 Gm Powderpack, 1 GM PO ONCE for Infection, #1 PKT 0 Refills Mix with water according to packet instructions before use. Prov:Darleen GoAbdulaziz AYALA 08/11/17 Discontinued Scripts Vit W/ Fe Polysacch C (Vitafol Ultra 29-0.6-0.4-200 mg) 1 Cap Cap, 1 TAB PO DAILY, #30 BOTTLE 11 Refills Prov:Darleen GoAbdulaziz AYALA 02/05/17 Vit W/ Fe Polysacch C (Vitafol Ultra 29-0.6-0.4-200 mg) 1 Cap Cap Prov:AlenbibianaDarleen cardonaAbdulaziz MANNINGP 02/05/17 Review of Systems Except as stated in HPI: all other systems reviewed are Neg Physical Exam Narrative GENERAL: Well-nourished, well-developed patient. SKIN: Warm and dry. HEAD: Normocephalic and atraumatic. EYES: No scleral icterus. No injection or drainage. ENT: No nasal drainage noted. Mucous membranes pink. Airway patent. ABDOMEN/GI: Abdomen soft, non-tender, gravid EXTREMITIES: No cyanosis or edema. BACK: + Left CVA tenderness. NEUROLOGICAL: Awake and alert. Motor and sensory grossly within normal limits.Normal speech. FHT's: Category: 1 Baseline: 140 Reactive: yes Variability: moderate Decels: none TOCO: occasional ctx Data Data Vital Signs Reviewed: Yes Orders Orders Vital Signs (Adult) .ON ADMISSION (08/12/17 18:44) ^ Labor Status (08/12/17 18:44) ^ Non Stress Test (08/12/17 18:44) Cbc No Diff, Includes Plts (08/12/17 18:44) Comprehensive Metabolic Panel (08/12/17 18:44) Sodium Chlor 0.9% 1000 Ml Inj (Ns 1000 M (08/12/17 19:00) Ceftriaxone Inj (Rocephin Inj) (08/12/17 20:00) Place In Observation (08/12/17 ) Diet Regular Basic (08/13/17 Breakfast) Vital Signs (Adult) DOC.[id number] AWAKE (08/12/17 19:05) Heart DOC.QSHIFT (08/12/17 19:05) Activity Oob Ad Luz (08/12/17 19:05) Acetaminophen (Tylenol) (08/12/17 19:15) Lpyqqpta-Crc-Nliqu-Iron Prenat (Stuartna (08/13/17 09:00) Sodium Chloride 0.9% Flush (Ns Flush) (08/12/17 21:00) Sodium Chloride 0.9% Flush (Ns Flush) (08/12/17 19:15) Ondansetron Odt (Zofran Odt) (08/12/17 19:15) Ondansetron Inj (Zofran Inj) (08/12/17 19:15) Ferrous Sulfate (Ferrous Sulfate) (08/12/17 21:00) Ceftriaxone Inj (Rocephin Inj) (08/13/17 19:15) Sodium Chlorid 0.9% 500 Ml Inj (Ns 500 M (08/12/17 19:15) MDM Plan 21y/o G1 @ 36.0wks with 1. pyelonephritis -- admit to antepartum -- CBC, CMP -- rocephin 1g q24hrs 2. anemia -- ferrous sulfate BID 3. -- cat 1 tracing, no s/s of PTL -- NST qshift 4. general -- regular diet -- up ad luz -- zofran PRN -- full code, accepts blood/ for emergencies Diagnosis Diagnosis: Primary Impression: Additional Impressions: Pyelonephritis affecting in third trimester 36 weeks gestation of Anemia Robret Way MD Aug 12, 2017 19:[address] MD Aug 12, 2017 19:30
[2017-08-12 19:55] LABS: HEMATOCRIT 30.4 % (35.0-46.0); MEAN CELL VOLUME 79.9 FL (80.0-100.0); MEAN CORPUSCULAR HEMOGLOBIN 26.2 PG (27.0-34.0); MEAN CORPUSCULAR HGB CONC 32.8 % (32.0-36.0); PLATELET COUNT 224 TH/MM3 (150-450); RED BLOOD COUNT 3.81 MIL/MM3 (4.00-5.30); RED CELL DISTRIBUTION WIDTH 14.2 % (11.6-17.2); REVIEW FLAG FINAL; WHITE BLOOD COUNT 8.5 TH/MM3 (4.0-11.0)
[2017-08-12] MEDS ORDERED: cefTRIAXone INJ 1,000 MG in SODIUM CHLORIDE 0.9% INJ 100 ML IV ONE (20:00)
[2017-08-12 20:11] VITALS: BP 96/56; PULSE 101
[2017-08-12 20:15] VITALS: RESP 18; TEMP 98.2
[2017-08-12 20:17] LABS: ALT (GPT) 10 U/L (9-42); ANION GAP 9 MEQ/L (5-15); AST (GOT) 11 U/L (16-38); BICARBONATE 21.6 MEQ/L (21.0-32.0); CHLORIDE 104 MEQ/L (98-107); GLOMERULAR FILTRATION RATE 153 ML/MIN (>89); POTASSIUM 3.3 MEQ/L (3.5-5.1); SODIUM (NA) 135 MEQ/L (136-145)
[2017-08-12 20:20] LABS: ALKALINE PHOSPHATASE 125 U/L (45-117); BLOOD UREA NITROGEN 4 MG/DL (7-18); TOTAL BILIRUBIN ADULT 0.4 MG/DL (0.2-1.0)
[2017-08-12] MEDS: FERROUS SULFATE 325 MG (65 MG ELEMENTAL IRON) TAB PO SCH (21:00)
[2017-08-12] MEDS: SODIUM CHLORIDE 0.9% FLUSH 10 ML FLUSH IV FLUSH SCH (21:00)
[2017-08-12] MEDS: ONDANSETRON ODT 4 MG TAB PO PRN (21:38)
[2017-08-12 23:30] VITALS: TEMP 100.8
[2017-08-13] VITALS (13 sets, daily range): BP systolic 90–103; BP diastolic 46–56; PULSE 76–78; RESP 16–18; TEMP 97.7–99
[2017-08-13] MEDS: SODIUM CHLORID 0.9% 500 ML INJ 500 ML IV SCH ×5 (05:00→15:35)
[2017-08-13] MEDS: SODIUM CHLORIDE 0.9% FLUSH 10 ML FLUSH IV FLUSH SCH ×2 (08:24→21:00)
[2017-08-13] MEDS: FERROUS SULFATE 325 MG (65 MG ELEMENTAL IRON) TAB PO SCH (08:24)
[2017-08-13] MEDS: MULTIVIT/MIN/PREN/FOL AC/IRON PRENATAL TAB PO SCH (08:24)
[2017-08-13] MEDS: ONDANSETRON ODT 4 MG TAB PO PRN (08:33)
--- NOTE | 2017-08-13 08:48 | PD.OB.ANTE ---
Subjective Diagnosis: (1) Pyelonephritis affecting in third trimester (2) Anemia (3) 36 weeks gestation of Interval History Patient states that she is feeling better since yesterday. Denies any chills overnight. Endorses mild nausea, denies any vomiting. Antepartum ROS: Reports: New complaints, movement normal, Other, Denies: Loss of fluid, Vaginal bleeding (Aditi Ford MD R1) Objective Vital Signs Vital Signs Date Time Temp Pulse Resp B/P (MAP) Pulse Ox O2 Delivery O2 Flow Rate FiO2 08/13/17 08:22 78 90/52 (65) 08/13/17 08:21 98.0 18 08/13/17 06:06 97.8 18 08/13/17 04:27 97.8 08/13/17 02:00 99.0 08/12/17 20:15 98.2 08/12/17 20:15 18 08/12/17 20:11 101 96/56 (69) 08/12/17 18:40 113 Lab & Micro Results Test 08/12/17 19:04 White Blood Count 8.5 TH/MM3 Red Blood Count 3.81 MIL/MM3 Hemoglobin 10.0 GM/DL Hematocrit 30.4 % Mean Corpuscular Volume 79.9 FL Mean Corpuscular Hemoglobin 26.2 PG Mean Corpuscular Hemoglobin Concent 32.8 % Red Cell Distribution Width 14.2 % Platelet Count 224 TH/MM3 Mean Platelet Volume 7.5 FL Blood Urea Nitrogen 4 MG/DL Creatinine 0.61 MG/DL Random Glucose 109 MG/DL Total Protein 6.7 GM/DL Albumin 2.5 GM/DL Calcium Level 8.2 MG/DL Alkaline Phosphatase 125 U/L Aspartate Amino Transf (AST/SGOT) 11 U/L Alanine Aminotransferase (ALT/SGPT) 10 U/L Total Bilirubin 0.4 MG/DL Sodium Level 135 MEQ/L Potassium Level 3.3 MEQ/L Chloride Level 104 MEQ/L Carbon Dioxide Level 21.6 MEQ/L Anion Gap 9 MEQ/L Estimat Glomerular Filtration Rate 153 ML/MIN Physical Exam GENERAL: Well-nourished, well-developed patient. CARDIOVASCULAR: Regular rate and rhythm without murmurs, gallops, or rubs. RESPIRATORY: Breath sounds equal bilaterally. No accessory muscle use. ABDOMEN/GI: Abdomen soft, non-tender. GENITOURINARY: External Genitalia: intact and normal in appearance Cervix: [-] Dilatation: [-] Effacement: [-] Station: [-] Presentation: [-] Membranes: [-] Uterine Contractions: no cxns FHT's: Category: 1 Baseline: 145 Reactive: yes Variability: mod Decels: none EXTREMITIES: No cyanosis or edema, non-tender, without signs of DVT. (Aditi Ford MD R1) Assessment and Plan Problem List: (1) Pyelonephritis affecting in third trimester ICD Codes: O23.03 - Infections of kidney in , third trimester Status: Acute (2) Anemia ICD Codes: D64.9 - Anemia, unspecified Status: Acute (3) ICD Codes: Z34.90 - Encounter for supervision of normal , unspecified , unspecified trimester Status: Acute Assessment and Plan This is a 21-year-old G1 at 36 weeks who is admitted for treatment of pyelonephritis. 1. Pyelonephritis -No elevated white count on initial CBC -Afebrile overnight -Day#2 of IV ceftriaxone (08/12 @8pm) 2. Anemia -Receiving iron supplementation 3. - FHT category 1, no contractions Dispo: Later this afternoon if continues to be afebrile DW Dr. Way (Aditi Ford MD R1) Assessment and Plan I saw/examined pt this morning with residents. Pt had a Tmax of 100.6 at 23:30 last evening. Continue IV abx today and if remains afebrile, d/c home tmw. Discussed need for 14d total course of oral abx followed by daily suppression tx throughout remainder of preg. (Robert Way MD) Aditi Ford MD R1 Aug 13, 2017 08:[address] MD Aug 13, 2017 09:38
[2017-08-13] MEDS ORDERED: cefTRIAXone INJ 1,000 MG in SODIUM CHLORIDE 0.9% INJ 100 ML IV SCH (18:00)
[2017-08-13] MEDS: cefTRIAXone INJ 1,000 MG in SODIUM CHLORIDE 0.9% INJ 100 ML IV SCH (20:00)
[2017-08-14 07:36] VITALS: RESP 18; TEMP 98
[2017-08-14] MEDS ORDERED: NITR1CAP36 PO (09:17)
--- NOTE | 2017-08-14 09:22 | PD.OB.ANTE ---
Subjective Diagnosis: (1) Pyelonephritis affecting in third trimester Diagnosis: Principal (2) Anemia Diagnosis: Secondary (3) Diagnosis: Secondary Interval History Patient was afebrile overnight. No N/V or chills. All other review of symptoms negative. Antepartum ROS: Reports: movement normal, Denies: Loss of fluid, Vaginal bleeding, Contractions Objective Vital Signs Vital Signs Date Time Temp Pulse Resp B/P (MAP) Pulse Ox O2 Delivery O2 Flow Rate FiO2 08/14/17 07:36 98.0 18 08/13/17 23:00 16 08/13/17 20:57 18 08/13/17 19:19 97.8 08/13/17 19:18 77 103/56 (72) 08/13/17 19:18 18 08/13/17 17:20 18 08/13/17 17:20 76 94/54 (67) 08/13/17 17:19 97.8 08/13/17 11:55 76 98/46 (63) 08/13/17 11:55 18 08/13/17 11:54 97.7 Physical Exam GENERAL: Well-nourished, well-developed patient. CARDIOVASCULAR: Regular rate and rhythm without murmurs, gallops, or rubs. RESPIRATORY: Breath sounds equal bilaterally. No accessory muscle use. ABDOMEN/GI: Abdomen soft, non-tender. Fundus: [-] GENITOURINARY: External Genitalia: intact and normal in appearance FHT's: Category: [-] Baseline: [-] Reactive: [-] Variability: [-] Decels: [-] EXTREMITIES: No cyanosis or edema, non-tender, without signs of DVT. Assessment and Plan Problem List: (1) Pyelonephritis affecting in third trimester ICD Codes: O23.03 - Infections of kidney in , third trimester Status: Acute (2) Anemia ICD Codes: D64.9 - Anemia, unspecified Status: Acute (3) ICD Codes: Z34.90 - Encounter for supervision of normal , unspecified , unspecified trimester Status: Acute Qualifiers: Qualified Codes: Z3A.36 - 36 weeks gestation of Assessment and Plan I saw/examined pt this morning with residents. Pt had a Tmax of 100.6 at 23:30 last evening. Continue IV abx today and if remains afebrile, d/c home tmw. Discussed need for 14d total course of oral abx followed by daily suppression tx throughout remainder of preg. Aditi Ford MD R1 Aug 14, 2017 09:22
[2017-08-14] MEDS: MULTIVIT/MIN/PREN/FOL AC/IRON PRENATAL TAB PO SCH (09:27)
[2017-08-14] MEDS: FERROUS SULFATE 325 MG (65 MG ELEMENTAL IRON) TAB PO SCH (09:28)
[2017-08-14 11:23] VITALS: TEMP 98.1
[2017-08-14 11:24] VITALS: BP 88/43; PULSE 67; RESP 16
--- NOTE | 2017-08-14 14:20 | HHI.DCPOC ---
Discharge Care Plan Diagnosis: (1) Pyelonephritis affecting in third trimester (2) 36 weeks gestation of Goals to Promote Your Health * To prevent worsening of your condition and complications * To maintain your health at the optimal level Directions to Meet Your Goals Take your medications as prescribed Follow your dietary instruction Follow activity as directed Keep your appointments as scheduled Take your immunizations and boosters as scheduled If your symptoms worsen call your PCP, if no PCP go to Urgent Care Center or Emergency Room Smoking is Dangerous to Your Health. Avoid second hand smoke Call the 24-hour hour crisis hotline for domestic abuse at Chencho Evangelista MD, R2 Aug 14, 2017 14:20
[2017-08-14 15:56] VITALS: BP 104/63; PULSE 84; RESP 18; TEMP 98
[2017-08-14] MEDS: cefTRIAXone INJ 1,000 MG in SODIUM CHLORIDE 0.9% INJ 100 ML IV SCH (15:58)
== END 2017-08-14 16:52 | disposition home or self-care (01) ==
LOC: HOBED 18:12 → H2EA 19:22
PROVIDERS: ADMIT Obstetrics & Gynecology; ATTEND Obstetrics & Gynecology
DX: O23.03 Infections of kidney in pregnancy, third trimester (principal); N12 Tubulo-interstitial nephritis, not specified as acute or chronic; O99.013 Anemia complicating pregnancy, third trimester; D64.9 Anemia, unspecified; Z3A.36 36 weeks gestation of pregnancy
CPT/HCPCS: 59025; 80053; 85027; 96374; 96376; 99285; G0378; J0696; J7040

== ENCOUNTER 2017-08-28 05:02 | Emergency (ER) | payer MEDICAID ==
[~2017-08-28 05:02] MED LIST changes: -AMOX500T PO; -MACR100C3 PO
[2017-08-28] MEDS ORDERED: LACTATED RINGER'S 1000 ML INJ 1,000 ML IV SCH (05:59)
--- NOTE | 2017-08-28 06:03 | PD ---
HPI Chief Complaint ctx Date Seen: Aug 28, 2017 Time Seen: 06:01 Travel History International Travel<30 Days: No Contact w/Intl Traveler<30Days: No Known Affected Area: No History of Present Illness HPI Pt is a 21y/o G1 @ 38.2wks. She has PNC at [facility]. She presents for ctx which started at 10pm last night and have continued through the night. She states they are painful. ?LOF. No VB. +FM. She states that she was 3cm dilated in the office recently. Her is complicated by recurrent UTIs and pyelo (on suppression), Rh neg (s/p Rhogam), CT this preg (recently txd), asthma (no hospitalizations or intubations), and GBS+. 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 Prov:Darleen Go 08/11/17 Review of Systems Except as stated in HPI: all other systems reviewed are Neg Physical Exam Narrative GENERAL: Well-nourished, well-developed patient. SKIN: Warm and dry. HEAD: Normocephalic and atraumatic. EYES: No scleral icterus. No injection or drainage. ENT: No nasal drainage noted. ABDOMEN/GI: Abdomen soft, non-tender, gravid EXTREMITIES: No cyanosis or edema. BACK: Nontender without obvious deformity. No CVA tenderness. NEUROLOGICAL: Awake and alert. Motor and sensory grossly within normal limits. CVX: /hi FHTs: 130, +accels, no decels, moderate variability, reactive TOCO: irregular ctx Data Data Vital Signs Reviewed: Yes Orders Orders Vital Signs (Adult) .ON ADMISSION (08/28/17 05:59) ^ Labor Status (08/28/17 05:59) Urinalysis - C+S If Indicated (08/28/17 05:59) ^ Non Stress Test (08/28/17 05:59) Pamg-1 Test .ONCE (08/28/17 05:59) Lactated Ringer's 1000 Ml Inj (Lr 1000 M (08/28/17 05:59) Group B Strep: Positive MDM Plan 21y/o G1 @ 38.2 weeks for r/o rupture and labor. -- amnisure negative -- cvx 3cm in office, 1cm in triage -- check UA -- bolus 1L -- recheck cervix in 1hr Diagnosis Diagnosis: Primary Impression: 38 weeks gestation of Additional Impression: Uterine contractions during [address] MD Aug 28, 2017 06:03
[2017-08-28 06:52] LABS: AMORPHOUS SEDIMENT, URINE OCC; BACTERIA, URINE MOD /hpf; BILIRUBIN, URINE NEG (NEG); BLOOD, URINE NEG (NEG); GLUCOSE,URINE NEG (NEG); KETONE, URINE NEG (NEG); NITRITE,URINE NEG (NEG); SQUAMOUS EPITHELIAL CELL URINE 27 /hpf (0-5); TRANSITIONAL EPI CELLS, URINE <1 /hpf; URINE COLOR LIGHT-YELLOW (YELLW/STRAW); URINE LEUKOCYTE ESTERASE LARGE (NEG)
== END 2017-08-28 08:10 | disposition home or self-care (01) ==
LOC: HOBED 05:02
DX: O47.9 False labor, unspecified (principal); B96.89 Other specified bacterial agents as the cause of diseases classified elsewhere; J45.909 Unspecified asthma, uncomplicated; Z3A.38 38 weeks gestation of pregnancy
CPT/HCPCS: 81001; 84112; 87086; 96360; 96361; 99284; J7120

== ENCOUNTER 2017-09-01 20:10 | Emergency (ER) | payer MEDICAID ==
--- NOTE | 2017-09-01 20:42 | PD ---
HPI Chief Complaint Leaking fluid Date Seen: Sep 01, 2017 Time Seen: 20:30 Travel History International Travel<30 Days: No Contact w/Intl Traveler<30Days: No Known Affected Area: No History of Present Illness HPI Patient is 21-year-old black female at 38 weeks 6 days presents complaining of leakage of fluid vaginally. Amnio sure is negative tonight. 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 Prov:Darleen Go 08/11/17 Review of Systems General / Constitutional: No: Fever, Weight Gain, Chills, Other Eyes: No: Diploplia, Blurred Vision, Visual changes, Pain, Photophobia HENT: No: Headaches, Vertigo, Lightheadedness Cardiovascular: No: Irregular Rhythm, Chest Pain or Discomfort, Palpitations, Tachycardia, Syncope, Varicosities, Edema, Cyanosis Respiratory: No: Cough, Short of Breath, Other Gastrointestinal: No: Nausea, Vomiting, Diarrhea Genitourinary: No: Decreased Urinary Output, Oliguria Musculoskeletal: No: Limited ROM, Weakness, Cramping, Edema, Pain Skin: No Rash, No Itching, No Dryness, No Lumps, No Change in Pigmentation, No Change in Nails, No Alopecia, No Lesions Neurologic: No: Weakness, Dizziness, Syncope, Focal Abnormalities, Coordination Problem, Headache, Slurred Speech, Seizures Psychiatric: No: Depression, Suicidal Ideations, Homicidal Ideation Endocrine: No: Heat Intolerance, Cold Intolerance, Polydipsia, Polyuria, Other Physical Exam Narrative GENERAL: Well-nourished, well-developed patient. SKIN: Warm and dry. HEAD: Normocephalic and atraumatic. EYES: No scleral icterus. No injection or drainage. ENT: No nasal drainage noted. Mucous membranes pink. Airway patent. NECK: Supple, trachea midline. No JVD. CARDIOVASCULAR: Regular rate and rhythm without murmurs, gallops, or rubs. RESPIRATORY: Breath sounds equal bilaterally. No accessory muscle use. BREASTS: Bilateral exam showed no masses , no retractions, no nipple discharge. ABDOMEN/GI: Abdomen soft, non-tender, bowel sounds present, no rebound, no guarding Gravid to [38-] weeks size Fundal Height: [38-] GENITOURINARY: External Genitalia: intact and normal in appearance BUS glands: [-] Cervix: [-] Dilatation: [1-] Effacement: [-40] Station: [-] Presentation: [-3] Membranes: [intact ] amnio sure negative Uterine Contractions: [-none] FHT's: Category: [-1] Baseline: [-133] Reactive: [-yes] Variability: [mod-] Decels: [-0] EXTREMITIES: No cyanosis or edema. BACK: Nontender without obvious deformity. No CVA tenderness. NEUROLOGICAL: Awake and alert. Motor and sensory grossly within normal limits. Five out of 5 muscle strength in all muscle groups. Normal speech. Data Data Labs Amnio sure negative MDM Interpretation(s) Patient 21-year-old black female at 38-39 weeks presents planning of leakage of fluid vaginally. amnisure is negative ; heart rate tracing is reactive and she is not nano regularly. [facility]. Plan Plan to discharge home patient to observe the condition of symptoms. She is to return for increased pain, bleeding, or leakage of fluid. Diagnosis Diagnosis: Primary Impression: No leakage of amniotic fluid into vagina Additional Impression: 38 weeks gestation of Disposition: DISCHARGE HOME Condition: Stable Patient Instructions: General Instructions, Having Your Baby: The Labor Process (GEN), Movement (ED), Abdominal Pain in (ED) Departure Forms: Tests/Procedures Richardson Cevallos II, MD Sep 01, 2017 20:42
== END 2017-09-01 20:44 | disposition home or self-care (01) ==
LOC: HOBED 20:10
DX: Z34.03 Encounter for supervision of normal first pregnancy, third trimester (principal); Z3A.38 38 weeks gestation of pregnancy
CPT/HCPCS: 59025; 84112

== ENCOUNTER 2017-12-13 11:01 | Emergency (ER) | payer MEDICAID ==
[~2017-12-13] VITALS: Ht 175.3 cm; Wt 56.0 kg
[~2017-12-13 11:01] MED LIST changes: -NITR1CAP36 PO; +NUVAMIS VAGINAL; -ZITH1POW PO
[2017-12-13 11:03] VITALS: BP 118/67; PULSE 87; RESP 14; TEMP 98; O2SAT 100
[2017-12-13] MEDS ORDERED: LIDOCAINE HCL 1% 50 ML VIAL XX ONE (11:45)
[2017-12-13] MEDS ORDERED: cefTRIAXone 250 MG VIAL IM ONE (11:45)
[2017-12-13] MEDS ORDERED: METR-1 PO (11:47)
[2017-12-13] MEDS ORDERED: IBUP1TAB7 PO (11:47)
[2017-12-13] MEDS ORDERED: DOXY100C PO (11:47)
--- NOTE | 2017-12-13 11:48 | PD ---
HPI . Pelvic cramping Chief Complaint: Tint Layer Problem/Complaint Time Seen by Provider: 11:20 Travel History International Travel<30 days: No Contact w/Intl Traveler<30days: No Traveled to known affect area: No History of Present Illness HPI Patient presents with chief complaint of pelvic cramping. Onset was this morning. She reports dyspareunia yesterday. She rates her pain 10/10. She denies any associated urinary tract symptoms. She denies any vaginal discharge. She denies any abnormal bleeding. 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 SKIN: Warm and dry. HEAD: Normocephalic/atraumatic. EYES: Pupils are equal. Extraocular movements are intact. NECK: Normal range of motion. Distally RESPIRATORY: Nonlabored respirations. ABDOMEN: Soft and nontender : Normal female external genitalia. White discharge in the vaginal vault. Os is closed. Cervix is inflamed appearing. Positive cervical motion tenderness. Bilateral adnexal tenderness. No masses palpated. MUSCULOSKELETAL: Atraumatic. NEUROLOGICAL: Nonfocal. PSYCHIATRIC: Appropriate mood and affect. Data Data Last Documented VS Vital Signs Date Time Temp Pulse Resp B/P (MAP) Pulse Ox O2 Delivery O2 Flow Rate FiO2 12/13/17 11:03 98.0 87 14 118/67 (84) 100 Orders Orders Gc And Chlamydia Pcr (12/13/17 11:22) Wet Prep Profile (12/13/17 11:22) Urinalysis - C+S If Indicated (12/13/17 11:22) Ed Urine Pregnancytest Poc (12/13/17 11:22) Ceftriaxone Inj (Rocephin Inj) (12/13/17 11:45) Lidocaine 1% Inj (50 Ml) (Xylocaine 1% I (12/13/17 11:45) Urine Culture (12/13/17 11:35) Labs Laboratory Tests Test 12/13/17 11:35 12/13/17 11:40 Urine Color YELLOW Urine Turbidity HAZY Urine pH 5.5 Urine Specific [place] 1.020 Urine Protein TRACE mg/dL Urine Glucose (UA) NEG mg/dL Urine Ketones NEG mg/dL Urine Occult Blood NEG Urine Nitrite NEG Urine Bilirubin NEG Urine Urobilinogen LESS THAN 2.0 MG/DL Urine Leukocyte Esterase LARGE Urine RBC 4 /hpf Urine WBC 43 /hpf Urine Squamous Epithelial Cells 28 /hpf Urine Bacteria FEW /hpf Urine Mucus MANY /lpf Microscopic Urinalysis Comment CULTURE INDICATED Clue Cells (Wet Prep) PRESENT Vaginal Trichomonas (Wet Prep) NONE SEEN Vaginal Yeast (Wet Prep) NONE SEEN MDM Medical Decision Making Medical Screen Exam Complete: Yes Emergency Medical Condition: Yes Differential Diagnosis Differential diagnosis of pelvic pain includes but is not limited to UTI, PID, ectopic , spontaneous AB, constipation, viral illness Narrative Course This patient presents with pelvic pain and dyspareunia. She has PID on exam. She'll be treated with Rocephin and will be discharged with prescriptions for doxycycline, Flagyl and ibuprofen. HCG neg. UA>>large LE, 43 WBCs, few bact, many mucous wet prep has clue cells. Diagnosis Primary Impression: Pelvic inflammatory disease Additional Impressions: Bacterial vaginosis UTI versus contamination Patient Instructions: General Instructions, Pelvic Inflammatory Disease (DC) Med/Other Pt SpecificInfo: Prescription(s) given Scripts Ibuprofen (Ibuprofen) 800 Mg Tab 800 MG PO Q8H Y for Pain/Inflammation, #60 TAB 0 Refills Prov: Mel De La Cruz MD 12/13/17 Metronidazole (Flagyl) 500 Mg Tab 500 MG PO BID for Infection for 7 Days, #14 TAB 0 Refills Prov: Mel De La Cruz MD 12/13/17 Doxycycline Hyclate (Doxycycline Hyclate) 100 Mg Cap 100 MG PO BID for Infection, #20 CAP 0 Refills Prov: Mel De La Cruz MD 12/13/17 Disposition: 01 DISCHARGE HOME Condition: Stable Mel De La Cruz MD Dec 13, 2017 11:47
[2017-12-13 12:04] LABS: BACTERIA, URINE FEW /hpf; BILIRUBIN, URINE NEG (NEG); BLOOD, URINE NEG (NEG); GLUCOSE,URINE NEG (NEG); KETONE, URINE NEG (NEG); MUCUS URINE MANY /lpf (OCC); NITRITE,URINE NEG (NEG); PH, URINE 5.5 (5.0-8.5); SQUAMOUS EPITHELIAL CELL URINE 28 /hpf (0-5); URINE COLOR YELLOW (YELLW/STRAW); URINE LEUKOCYTE ESTERASE LARGE (NEG)
== END 2017-12-13 12:50 | disposition home or self-care (01) ==
LOC: NEPD 11:01
DX: N73.9 Female pelvic inflammatory disease, unspecified (principal); N76.0 Acute vaginitis; B96.20 Unspecified Escherichia coli [E. coli] as the cause of diseases classified elsewhere; J45.909 Unspecified asthma, uncomplicated
CPT/HCPCS: 81001; 84703; 87077; 87086; 87186; 87210; 87491; 87591; 96372; 99283; J0696

== ENCOUNTER 2017-12-22 12:02 | Emergency (ER) | payer MEDICAID ==
[~2017-12-22] VITALS: Ht 175.3 cm; Wt 54.5 kg
[~2017-12-22 12:02] MED LIST changes: +DOXY100C PO; +IBUP1TAB7 PO; +METR-1 PO; -NUVAMIS VAGINAL
[2017-12-22 12:03] VITALS: BP 117/56; PULSE 104; RESP 18; TEMP 98.2; O2SAT 97
[2017-12-22] MEDS ORDERED: OFLO0.3D9 LEFT EAR (13:29)
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
== END 2017-12-22 13:47 | disposition home or self-care (01) ==
LOC: NEPK 12:02
DX: H72.92 Unspecified perforation of tympanic membrane, left ear (principal)
CPT/HCPCS: 99283

== ENCOUNTER 2018-01-19 14:58 | Emergency (ER) | payer MEDICAID ==
[~2018-01-19 14:58] MED LIST changes: +OFLO0.3D9 LEFT EAR
[2018-01-19 16:08] VITALS: BP 123/72; PULSE 79; RESP 16; TEMP 98.8; O2SAT 100
[2018-01-19 17:28] LABS: BACTERIA, URINE MOD /hpf; BILIRUBIN, URINE NEG (NEG); BLOOD, URINE NEG (NEG); GLUCOSE,URINE NEG (NEG); KETONE, URINE NEG (NEG); MUCUS URINE MOD /lpf (OCC); NITRITE,URINE NEG (NEG); SQUAMOUS EPITHELIAL CELL URINE 2 /hpf (0-5); URINE COLOR YELLOW (YELLW/STRAW); URINE LEUKOCYTE ESTERASE SMALL (NEG)
--- NOTE | 2018-01-19 21:21 | PD ---
HPI Chief Complaint: Abdominal Pain Time Seen by Provider: 20:59 Travel History International Travel<30 days: No Contact w/Intl Traveler<30days: No Traveled to known affect area: No History of Present Illness HPI This patient was examined in the presence of a female nurse. 22-year-old female presents for evaluation of pelvic pain. Symptoms started 2 days ago. She describes it as a crampy pain which is constant with no aggravating or relieving factors. She reports increased urinary frequency but denies dysuria, vaginal bleeding or discharge, nausea vomiting, fevers or chills, flank pain. She is sexually active with one partner. She reports that symptoms feel similar to when she was seen here on December 13. At that time she was diagnosed with pelvic inflammatory disease but she had negative chlamydia and gonorrhea tests at that time. She did have a UTI and bacterial vaginosis at that time. She has no other complaints at this time. Her last menstrual period was approximately December 17. 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 HEAD: Atraumatic. Normocephalic. EYES: Pupils equal and round. No scleral icterus. No injection or drainage. ENT: No nasal bleeding or discharge. Mucous membranes pink and moist. NECK: Trachea midline. No JVD. CARDIOVASCULAR: Regular rate and rhythm. No murmur appreciated. RESPIRATORY: No accessory muscle use. Clear to auscultation. Breath sounds equal bilaterally. GASTROINTESTINAL: Abdomen soft, mild suprapubic tenderness without guarding. There is no tenderness to palpation the left or right lower quadrants. Pelvic examination the presence of a female nurse reveals small amount of clear/white discharge, no cervical motion tenderness or adnexal tenderness. MUSCULOSKELETAL: No obvious deformities. No clubbing. No cyanosis. No edema. NEUROLOGICAL: Awake and alert. No obvious cranial nerve deficits. Motor grossly within normal limits. Normal speech. PSYCHIATRIC: Appropriate mood and affect; insight and judgment normal. Data Data Last Documented VS Vital Signs Date Time Temp Pulse Resp B/P (MAP) Pulse Ox O2 Delivery O2 Flow Rate FiO2 01/19/18 16:08 98.8 79 16 123/72 (89) 100 Orders Orders Urinalysis - C+S If Indicated (01/19/18 16:10) Ed Urine Pregnancytest Poc (01/19/18 16:10) Gc And Chlamydia Pcr (01/19/18 16:10) Urine Culture (01/19/18 16:31) Gc And Chlamydia Pcr (01/19/18 21:08) Wet Prep Profile (01/19/18 21:08) Beta Hcg (Quant/Titer) (01/19/18 21:17) Us Pelvis (Ques Pr/Ect)W Trans (01/19/18 ) Ed Discharge Order (01/19/18 23:21) Labs Laboratory Tests Test 01/19/18 16:31 01/19/18 21:25 01/19/18 21:31 Urine Color YELLOW Urine Turbidity HAZY Urine pH 6.0 Urine Specific [place] 1.020 Urine Protein NEG mg/dL Urine Glucose (UA) NEG mg/dL Urine Ketones NEG mg/dL Urine Occult Blood NEG Urine Nitrite NEG Urine Bilirubin NEG Urine Urobilinogen LESS THAN 2.0 MG/DL Urine Leukocyte Esterase SMALL Urine RBC LESS THAN 1 /hpf Urine WBC 16 /hpf Urine Squamous Epithelial Cells 2 /hpf Urine Bacteria MOD /hpf Urine Mucus MOD /lpf Microscopic Urinalysis Comment CULTURE INDICATED Chlamydia trachomatis DNA (PCR) NOT DETECTED Neisseria gonorrhoeae DNA (PCR) NOT DETECTED Clue Cells (Wet Prep) NONE SEEN Vaginal Trichomonas (Wet Prep) NONE SEEN Vaginal Yeast (Wet Prep) NONE SEEN Human Chorionic Gonadotropin, Quant 2490 MIU/ML MDM Medical Decision Making Medical Screen Exam Complete: Yes Emergency Medical Condition: Yes Medical Record Reviewed: Yes Differential Diagnosis Cystitis, pyelonephritis, pelvic inflammatory disease, early , ectopic , cervicitis, ovarian cyst Narrative Course 22-year-old female with suprapubic crampy sensation for 2 days. Urine test was performed and it is positive. A quantitative beta-hCG and ultrasound of been ordered. On pelvic examination she has no cervical motion tenderness or adnexal tenderness. She does have mild suprapubic tenderness. A urine chlamydia and gonorrhea PCR was obtained in triage which is negative. Another chlamydia and gonorrhea PCR has been performed during the pelvic examination. A wet prep has also been performed. Her urinalysis revealed 16 WBCs and moderate bacteria suggestive of a urinary tract infection. Ultrasound reveals CONCLUSION: Tiny cystic structure in the fundal endometrium may represent a gestational sac. Size is too small for dating. Quantitative beta-hCG is 2490. The patient is stable for discharge, return in 2 days for repeat quantitative beta-hCG to ensure and not early missed . Diagnosis Primary Impression: Early stage of Additional Impression: UTI (urinary tract infection) Additional Instructions: Medication as prescribed. Begin vitamins. Follow-up with an [facility] to establish care. Return in 2 days for repeat quantitative beta-hCG. Med/Other Pt SpecificInfo: Prescription(s) given Scripts Nitrofurantoin Monohydrate Macrocrystals (Macrobid) 100 Mg Cap 100 MG PO BID for Infection for 7 Days, #14 CAP 0 Refills Prov: Fredy Fox MD 01/19/18 Disposition: DISCHARGE HOME Condition: Stable David Can Jan 19, 2018 21:21
--- NOTE | 2018-01-19 23:10 | RADRPT ---
EXAM DATE/TIME: 01/19/2018 21:37 [place] COMPARISON: US PELVIS (QUEST PREG/ECTOPIC) W/TRANSVAG, January 19, 2017, 8:08. INDICATIONS : Pelvic pain with . LAB(S): [facility] MEDICAL HISTORY : . Asthma. MDRO. SURGICAL HISTORY : None. ENCOUNTER: Subsequent ACUITY: 2 days PAIN SCORE: 5/10 LOCATION: Bilateral pelvis MEASUREMENTS: UTERUS: 10.7 x 6.4 x 4.2 cm ENDOMETRIAL STRIPE: 13 mm RIGHT OVARY: 3.2 x 1.7 x 1.9 cm LEFT OVARY: 3.7 x 2.3 x 2.5 cm FINDINGS: The there is a 7 x 8 mm oval cystic structure in the upper portion of the endometrium which appears t o contain a yolk sac. No pole is identified. There is a mild amount of free fluid in the cul- de-sac. Both ovaries are identified. There is a 2.3 x 1.6 cm hypoechoic cyst in the left ovary. Ho mogeneous echotexture in the right ovary. No increased flow in either adnexa on color Doppler. CONCLUSION: Tiny cystic structure in the fundal endometrium may represent a gestational sac. Size is too small f or dating. Flako Durham MD on January 19, 2018 at 23:04 Board Certified Radiologist. This report was verified electronically.
[2018-01-19] MEDS ORDERED: MACR100C2 PO (23:21)
== END 2018-01-19 23:53 | disposition home or self-care (01) ==
LOC: NED 14:58 → NEPD 23:53
DX: O23.41 Unspecified infection of urinary tract in pregnancy, first trimester (principal); Z3A.00 Weeks of gestation of pregnancy not specified
CPT/HCPCS: 76700; 76817; 81001; 84702; 84703; 87077; 87086; 87186; 87210; 87491; 87591; 99284

== ENCOUNTER 2018-01-21 19:17 | Emergency (ER) | payer MEDICAID ==
[~2018-01-21] VITALS: Ht 175.3 cm; Wt 54.0 kg
[~2018-01-21 19:17] MED LIST changes: +MACR100C2 PO
[2018-01-21 19:30] VITALS: BP 106/57; PULSE 85; RESP 16; TEMP 98.6; O2SAT 100
[2018-01-21] MEDS ORDERED: SODIUM CHLORIDE 0.9% FLUSH 10 ML FLUSH IV FLUSH PRN (21:45)
--- NOTE | 2018-01-21 22:08 | PD ---
HPI Chief Complaint: Medical Clearance Time Seen by Provider: 21:42 Travel History International Travel<30 days: No Contact w/Intl Traveler<30days: No Traveled to known affect area: No History of Present Illness HPI PATIENT IS A , LAST MENSES DEC 16, AND WAS FOUND TO BE ON JANUARY 19 WITH QUANT AROUND 2000 AND EARLY IUP. PATIENT WAS ADVISED TO RETURN FOR HCG REPEAT TESTING...PATIENT IS PLANNING ON FOLLOWING UP WITH [facility] [place]. PATIENT DENIES ANY VAG BLEEDING, ABD PAIN, BACK PAIN, N/V/D/, RASH/ FEVER AT THIS TIME. PATIENT KNOWS SHE IS O NEGATIVE FROM HER FIRST . 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 HEAD: Atraumatic. Normocephalic. EYES: Pupils equal and round. No scleral icterus. No injection or drainage. ENT: No nasal bleeding or discharge. Mucous membranes pink and moist. NECK: Trachea midline. No JVD. CARDIOVASCULAR: Regular rate and rhythm. RESPIRATORY: No accessory muscle use. Clear to auscultation. Breath sounds equal bilaterally. GASTROINTESTINAL: Abdomen soft, non-tender, nondistended. MUSCULOSKELETAL: Extremities without clubbing, cyanosis, or edema. No obvious deformities. NEUROLOGICAL: Awake and alert. No obvious cranial nerve deficits. Motor grossly within normal limits. Five out of 5 muscle strength in the arms and legs. Normal speech. PSYCHIATRIC: Appropriate mood and affect; insight and judgment normal. Data Data Last Documented VS Vital Signs Date Time Temp Pulse Resp B/P (MAP) Pulse Ox O2 Delivery O2 Flow Rate FiO2 01/21/18 19:30 98.6 85 16 106/57 (73) 100 Orders Orders Beta Hcg (Quant/Titer) (01/21/18 21:42) Sodium Chloride 0.9% Flush (Ns Flush) (01/21/18 21:45) Labs Laboratory Tests Test 01/21/18 21:54 Human Chorionic Gonadotropin, Quant 4675 MIU/ML [facility] Medical Decision Making Medical Screen Exam Complete: Yes Emergency Medical Condition: Yes Medical Record Reviewed: Yes Differential Diagnosis THREATENED AB V EARLY IUP V AB Narrative Course PATIENT'S HCG 2400 TO 4600 INCREASE IN QUANT HCG C/W EARLY , PT IS REFERRED TO FOLLOW UP WITH HER OBGYN FOR FURTHER EVALUATION AND FOLLOW UP Diagnosis Primary Impression: EARLY Patient Instructions: First Trimester (ED), General Instructions Disposition: 01 DISCHARGE HOME Condition: Stable Casey Vasquez MD Jan 21, 2018 22:08
== END 2018-01-22 00:28 | disposition home or self-care (01) ==
LOC: NEPD 19:17
DX: O26.891 Other specified pregnancy related conditions, first trimester (principal); Z3A.00 Weeks of gestation of pregnancy not specified
CPT/HCPCS: 84702; 99281